=== PATIENT | female | born 1990 | race Caucasian/White ===

== ENCOUNTER 2019-02-23 15:07 | Inpatient (IN) | payer BC ==
[2019-02-23] MEDS ORDERED: Lidocaine 1% 50 ML MDV INJECT PRN (15:27)
[2019-02-23] MEDS ORDERED: Sodium Chloride 0.9% 2.5 ML Syringe FLUSH PRN (15:27)
[2019-02-23] MEDS ORDERED: Methylergonovine 0.2 MG/1 ML Amp IM PRN (15:27)
[2019-02-23] MEDS ORDERED: Water For Irrigation,Sterile 1,000 ML Container IRR PRN (15:27)
[2019-02-23] MEDS ORDERED: Misoprostol 200 MCG Tab PO PRN (15:27)
[2019-02-23] MEDS ORDERED: Sodium Chloride 0.9% 10 ML Syringe FLUSH PRN (15:27)
[2019-02-23] MEDS ORDERED: Sodium Chloride 0.9% 10 ML SDV IV PRN (15:27)
[2019-02-23] MEDS ORDERED: Carboprost Tromethamine 250 MCG/1 ML Amp IM PRN (15:27)
[2019-02-23] MEDS ORDERED: Tranexamic Acid 1,000 MG in Sodium Chloride 0.9% 100 ML IV PRN (15:27)
[2019-02-23] MEDS ORDERED: Nalbuphine 10 MG/1 ML Vial IVPUSH PRN (15:27)
[2019-02-23] MEDS ORDERED: Oxytocin/0.9 % Sodium Chloride 30 UNIT/500 ML BAG IV SCH ×2 (15:30→19:15)
[2019-02-23] MEDS: Lactated Ringers 1,000 ML IV SCH (15:35)
[2019-02-23] MEDS ORDERED: Terbutaline 1 MG/ML SDV SUBCUT PRN (19:13)
[2019-02-23] MEDS: Misoprostol 25 MCG (1/4 of 100 MCG) Tab VAG PRN (19:50)
[2019-02-24] MEDS: Misoprostol 25 MCG (1/4 of 100 MCG) Tab VAG PRN (00:15)
[2019-02-24] MEDS: Butorphanol 1 MG/ML SDV IVPUSH PRN ×3 (03:54→08:42)
[2019-02-24] MEDS: Lactated Ringers 1,000 ML IV SCH (03:56)
--- NOTE | 2019-02-24 08:52 | PCM.PREANE ---
Preanesthetic Assessment - Anesthesia/Transfusion/Family Hx Anesthesia History: Prior Anesthesia Without Reaction Family History of Anesthesia Reaction: No Transfusion History: No Prior Transfusion(s) - Review of Systems General: No Symptoms Pulmonary: No Symptoms Cardiovascular: No Symptoms Gastrointestinal: No Symptoms Neurological: No Symptoms Other: Reports: None - Physical Assessment Height: 5 ft 7 in Weight: 81.647 kg ASA Class: 2 Mental Status: Alert & Oriented x3 Airway Class: Mallampati = 2 Dentition: Reports: Normal Dentition Thyro-Mental Finger Breadths: 3 Mouth Opening Finger Breadths: 3 ROM/Head Extension: Full Lungs: Clear to Auscultation, Normal Respiratory Effort Cardiovascular: Regular Rate, Regular Rhythm - Lab Values: Laboratory Last Values WBC 8.66 K/uL (4.0-11.0) 02/23/19 15:40 RBC 3.78 M/uL (4.30-5.90) L 02/23/19 15:40 Hgb 11.7 g/dL (12.0-16.0) L 02/23/19 15:40 Hct 35.3 % (36.0-46.0) L 02/23/19 15:40 MCV 93.4 fL (80.0-98.0) 02/23/19 15:40 MCH 31.0 pg (27.0-32.0) 02/23/19 15:40 MCHC 33.1 g/dL (31.0-37.0) 02/23/19 15:40 RDW Std Deviation 51.1 fl (28.0-62.0) 02/23/19 15:40 RDW Coeff of Sandrine 15 % (11.0-15.0) 02/23/19 15:40 Plt Count 197 K/uL (150-400) 02/23/19 15:40 MPV 9.70 fL (7.40-12.00) 02/23/19 15:40 Nucleated RBC % 0.0 /100WBC 02/23/19 15:40 Nucleated RBCs # 0 K/uL 02/23/19 15:40 Blood Type O POSITIVE 02/23/19 15:40 Antibody Screen NEGATIVE 02/23/19 15:40 - Allergies Allergies/Adverse Reactions: Allergies Allergy/AdvReac Type Severity Reaction Status Date / Time No Known Allergies Allergy Verified 02/23/19 15:16 - Acknowledgements Anesthesia Type Planned: Epidural Pt an Appropriate Candidate for the Planned Anesthesia: Yes Alternatives and Risks of Anesthesia Discussed w Pt/Guardian: Yes Pt/Guardian Understands and Agrees with Anesthesia Plan: Yes PreAnesthesia Questionnaire HEENT History: Reports: None Cardiovascular History: Reports: Heart Murmur, High Cholesterol, Other (See Below) Other Cardiovascular History: heart murmer as child: resolved. 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): Musculoskeletal History: Reports: None Neurological History: Reports: None Psychiatric History: Reports: ADD, Other (See Below) Other Psychiatric History: ADD in middle school Endocrine/Metabolic History: Reports: Vitamin D Deficiency Hematologic History: Reports: None Immunologic History: Reports: None Oncologic (Cancer) History: Reports: None Dermatologic History: Reports: None - Infectious Disease History Infectious Disease History: Reports: None - Past Surgical History GI Surgical History: Reports: Appendectomy - HOME MEDS Home Medications: Home Meds Docosahexanoic Acid [ Dha] 1 tab PO DAILY 07/31/18 [History] - CURRENT (IN HOUSE) MEDS Current Meds: Current Medications Butorphanol Tartrate (Stadol) 1 mg IVPUSH Q1H PRN PRN Reason: Pain Last Admin: 02/24/19 08:42 Dose: 1 mg Carboprost Tromethamine (Hemabate Ds) 250 mcg IM ASDIRECTED PRN PRN Reason: Post Hemorrhage Lactated Ringer's (Ringers, Lactated) 1,000 mls @ 150 mls/hr IV ASDIRECTED MURIEL Last Admin: 02/24/19 03:56 Dose: 150 mls/hr Oxytocin/Sodium Chloride (Oxytocin 30 Unit/500 Ml-Ns) 30 unit in 500 mls @ 999 mls/hr IV TITRATE MURIEL Tranexamic Acid 1,000 mg/ (Sodium Chloride) 110 mls @ 660 mls/hr IV ONETIME PRN PRN Reason: Bleeding Oxytocin/Sodium Chloride (Oxytocin 30 Unit/500 Ml-Ns) 30 unit in 500 mls @ 2 mls/hr IV TITRATE MURIEL; Protocol Lidocaine HCl (Xylocaine 1%) 50 ml INJECT ONETIME PRN PRN Reason: Laceration repair Methylergonovine Maleate (Methergine) 0.2 mg IM ASDIRECTED PRN PRN Reason: Post Hemorrhage Misoprostol (Cytotec) 200 mcg PO ONETIME PRN PRN Reason: Post Hemorrhage Misoprostol (Cytotec) 25 mcg VAG Q4H PRN PRN Reason: Cervical Ripening Last Admin: 02/24/19 00:15 Dose: 25 mcg Nalbuphine HCl (Nubain) 10 mg IVPUSH Q1H PRN PRN Reason: Pain (severe 7-10) Sodium Chloride (Saline Flush) 10 ml FLUSH ASDIRECTED PRN PRN Reason: Keep Vein Open Sodium Chloride (Saline Flush) 2.5 ml FLUSH ASDIRECTED PRN PRN Reason: Keep Vein Open Sodium Chloride (Normal Saline) 10 ml IV ASDIRECTED PRN PRN Reason: IV Use Sterile Water (Sterile Water For Irrigation) 1,000 ml IRR ASDIRECTED PRN PRN Reason: delivery Terbutaline Sulfate (Brethine) 0.25 mg SUBCUT ASDIRECTED PRN PRN Reason: Tacysystole
--- NOTE | 2019-02-24 21:17 | PCM.DEL ---
<Esperanza Bird - Last Filed: 02/24/19 21:12> L & D Note - General Info Date of Service: 02/24/19 Mother's Due Date: 02/23/19 - Delivery Note Labor: Induced by Oxytocin (category 2 FHR) Cervical Ripening Method: Balloon Device, Oxytocin Other Cervical Ripening Method: Cytotec Delivery Outcome: Livebirth Infant Delivery Method: Spontaneous Vaginal Delivery-Single Infant Delivery Mode: Spontaneous Presentation: Unable to Assess Nuchal Cord: None Anesthesia Type: Epidural Amniotic Fluid Description: Meconium Stained Laceration: 2nd Degree, Perineal Suture type: Other (monochril) Suture size: 2-0 Placenta: Intact Cord: 3 Vessels Estimated Blood Loss: 350 Resuscitation Needed: No [place]: Bulb Syringe, Stimulated, Warmed, Anchor Point Used, Warmer Used Score 1 min: 8 Score 5 min: 9 Second Stage Interventions: Reports: Pushing Effectively, Pushing, Stirrups/Leg Supports Induction Criteria - Induction Gestational Age >/= 39 wks: Yes Estimated Pelvis: Reports: Adequate Reassuring Monitoring Strip: Yes Absence of Tachy Systole: Yes - Augmentation Estimated Pelvis: Reports: Adequate Weight Estimated:: Reports: AGA Reassuring Monitoring Strip: Yes Absence of Tachy Systole: Yes Vacuum Extractor Progress Note - Alternative Labor Strategies Considered Alternative Labor Strategies Considered:: Reports: No - General Info Date of Service: 02/24/19 Functional Status: Reports: Pain Controlled - Review of Systems General: Reports: No Symptoms HEENT: Reports: No Symptoms Pulmonary: Reports: No Symptoms Cardiovascular: Reports: No Symptoms Gastrointestinal: Reports: No Symptoms Genitourinary: Reports: No Symptoms Musculoskeletal: Reports: No Symptoms Skin: Reports: No Symptoms Neurological: Reports: No Symptoms Psychiatric: Reports: No Symptoms - Patient Data Weight - Most Recent: 81.647 kg Med Orders - Current: Current Medications Butorphanol Tartrate (Stadol) 1 mg IVPUSH Q1H PRN PRN Reason: Pain Last Admin: 02/24/19 08:42 Dose: 1 mg Carboprost Tromethamine (Hemabate Ds) 250 mcg IM ASDIRECTED PRN PRN Reason: Post Hemorrhage Lactated Ringer's (Ringers, Lactated) 1,000 mls @ 150 mls/hr IV ASDIRECTED MURIEL Last Admin: 02/24/19 03:56 Dose: 150 mls/hr Oxytocin/Sodium Chloride (Oxytocin 30 Unit/500 Ml-Ns) 30 unit in 500 mls @ 999 mls/hr IV TITRATE MURIEL Tranexamic Acid 1,000 mg/ (Sodium Chloride) 110 mls @ 660 mls/hr IV ONETIME PRN PRN Reason: Bleeding Oxytocin/Sodium Chloride (Oxytocin 30 Unit/500 Ml-Ns) 30 unit in 500 mls @ 2 mls/hr IV TITRATE MURIEL; Protocol Last Titration: 02/24/19 20:43 Dose: 999 munits/min, 999 mls/hr Lidocaine HCl (Xylocaine 1%) 50 ml INJECT ONETIME PRN PRN Reason: Laceration repair Last Admin: 02/24/19 21:00 Dose: 50 ml Methylergonovine Maleate (Methergine) 0.2 mg IM ASDIRECTED PRN PRN Reason: Post Hemorrhage Misoprostol (Cytotec) 200 mcg PO ONETIME PRN PRN Reason: Post Hemorrhage Misoprostol (Cytotec) 25 mcg VAG Q4H PRN PRN Reason: Cervical Ripening Last Admin: 02/24/19 00:15 Dose: 25 mcg Nalbuphine HCl (Nubain) 10 mg IVPUSH Q1H PRN PRN Reason: Pain (severe 7-10) Sodium Chloride (Saline Flush) 10 ml FLUSH ASDIRECTED PRN PRN Reason: Keep Vein Open Sodium Chloride (Saline Flush) 2.5 ml FLUSH ASDIRECTED PRN PRN Reason: Keep Vein Open Sodium Chloride (Normal Saline) 10 ml IV ASDIRECTED PRN PRN Reason: IV Use Sterile Water (Sterile Water For Irrigation) 1,000 ml IRR ASDIRECTED PRN PRN Reason: delivery Last Admin: 02/24/19 21:00 Dose: 1,000 ml Terbutaline Sulfate (Brethine) 0.25 mg SUBCUT ASDIRECTED PRN PRN Reason: Tacysystole Discontinued Medications Fentanyl/Bupivacaine HCl (Ufwsmpev-Jdfkh-Zq 2 Mcg/Ml-0.125%) Confirm Administered Dose 100 mls @ as directed .ROUTE .STK-MED ONE Stop: 02/24/19 08:55 Fentanyl/Bupivacaine HCl (Dgitlgzg-Ptksj-Su 2 Mcg/Ml-0.125%) Confirm Administered Dose 100 mls @ as directed .ROUTE .STK-MED ONE Stop: 02/24/19 15:24 - Exam General: Alert, Oriented Neck: Supple GI/Abdominal Exam: Soft, Non-Tender, No Organomegaly, No Distention, Pelvis Stable (Female) Exam: Normal External Exam, Normal Bimanual Exam Back Exam: Normal Inspection, Full Range of Motion Extremities: Normal Inspection, Normal Range of Motion, Non-Tender, No Pedal Edema, Normal Capillary Refill Skin: Warm, Dry, Intact Wound/Incisions: Healing Well Neurological: No New Focal Deficit Psy/Mental Status: Alert, Normal Affect, Normal Mood - Problem List & Annotations (1) Vaginal delivery SNOMED Code(s): 956611457 Code(s): O80 - ENCOUNTER FOR FULL-TERM UNCOMPLICATED DELIVERY Status: Acute Current Visit: Yes - Problem List Review Problem List Initiated/Reviewed/Updated: Yes - Assessment Assessment:: Vaginal delivery - Plan Plan:: Regular diet Ambulate PRN Pain control PRN Routine care <Quentin Tilley - Last Filed: 02/24/19 21:27> L & D Note - Delivery Note Cervical Ripening Method: Misoprostil Presentation: Right Occiput Anterior (PINO) Episiotomy Type: None Laceration: Perineal Delivery Comments (Free Text/Narrative):: Live female delivered at 2042 , 8/9 weight pending - Patient Data Med Orders - Current: Current Medications Butorphanol Tartrate (Stadol) 1 mg IVPUSH Q1H PRN PRN Reason: Pain Last Admin: 02/24/19 08:42 Dose: 1 mg Carboprost Tromethamine (Hemabate Ds) 250 mcg IM ASDIRECTED PRN PRN Reason: Post Hemorrhage Lactated Ringer's (Ringers, Lactated) 1,000 mls @ 150 mls/hr IV ASDIRECTED MRUIEL Last Admin: 02/24/19 03:56 Dose: 150 mls/hr Oxytocin/Sodium Chloride (Oxytocin 30 Unit/500 Ml-Ns) 30 unit in 500 mls @ 999 mls/hr IV TITRATE MURIEL Tranexamic Acid 1,000 mg/ (Sodium Chloride) 110 mls @ 660 mls/hr IV ONETIME PRN PRN Reason: Bleeding Oxytocin/Sodium Chloride (Oxytocin 30 Unit/500 Ml-Ns) 30 unit in 500 mls @ 2 mls/hr IV TITRATE MURIEL; Protocol Last Titration: 02/24/19 20:43 Dose: 999 munits/min, 999 mls/hr Lidocaine HCl (Xylocaine 1%) 50 ml INJECT ONETIME PRN PRN Reason: Laceration repair Last Admin: 02/24/19 21:00 Dose: 50 ml Methylergonovine Maleate (Methergine) 0.2 mg IM ASDIRECTED PRN PRN Reason: Post Hemorrhage Misoprostol (Cytotec) 200 mcg PO ONETIME PRN PRN Reason: Post Hemorrhage Misoprostol (Cytotec) 25 mcg VAG Q4H PRN PRN Reason: Cervical Ripening Last Admin: 02/24/19 00:15 Dose: 25 mcg Nalbuphine HCl (Nubain) 10 mg IVPUSH Q1H PRN PRN Reason: Pain (severe 7-10) Sodium Chloride (Saline Flush) 10 ml FLUSH ASDIRECTED PRN PRN Reason: Keep Vein Open Sodium Chloride (Saline Flush) 2.5 ml FLUSH ASDIRECTED PRN PRN Reason: Keep Vein Open Sodium Chloride (Normal Saline) 10 ml IV ASDIRECTED PRN PRN Reason: IV Use Sterile Water (Sterile Water For Irrigation) 1,000 ml IRR ASDIRECTED PRN PRN Reason: delivery Last Admin: 02/24/19 21:00 Dose: 1,000 ml Terbutaline Sulfate (Brethine) 0.25 mg SUBCUT ASDIRECTED PRN PRN Reason: Tacysystole Discontinued Medications Fentanyl/Bupivacaine HCl (Kalmvfyt-Xoqxg-Di 2 Mcg/Ml-0.125%) Confirm Administered Dose 100 mls @ as directed .ROUTE .STK-MED ONE Stop: 02/24/19 08:55 Fentanyl/Bupivacaine HCl (Vodbexln-Hagym-Wu 2 Mcg/Ml-0.125%) Confirm Administered Dose 100 mls @ as directed .ROUTE .STK-MED ONE Stop: 02/24/19 15:24 - My Orders Last 24 Hours: My Active Orders 02/24/19 Breakfast Regular Diet [DIET]
[2019-02-24] MEDS ORDERED: Witch Hazel Medicated Pads 40/Jar TOP PRN (21:29)
[2019-02-24] MEDS ORDERED: Lanolin 100% Cream 7 GM Tube TOP PRN (21:29)
[2019-02-24] MEDS ORDERED: Benzocaine/Menthol 20%-0.5% Spray 78 GM Cannister TOP PRN (21:29)
[2019-02-24] MEDS ORDERED: Acetaminophen 500 MG Tab PO PRN (21:29)
[2019-02-24] MEDS ORDERED: Bisacodyl 10 MG Supp RECTAL PRN (21:29)
[2019-02-24] MEDS ORDERED: Docusate Sodium 100 MG Cap PO PRN (21:29)
[2019-02-24] MEDS ORDERED: oxyCODONE 5 MG Tab PO PRN (21:29)
[2019-02-24] MEDS ORDERED: Ibuprofen 400 MG Tab PO PRN (21:29)
[2019-02-25] MEDS: Acetaminophen 500 MG Tab PO PRN ×3 (00:11→22:21)
--- NOTE | 2019-02-25 07:17 | PCM.PNPP ---
- General Info Date of Service: 02/25/19 Subjective Update: 28 yo P1 s/p denies any complains , Normal lochia , , ambulating and tolerating regular diet Functional Status: Reports: Pain Controlled, Tolerating Diet, Ambulating, Urinating - Review of Systems General: Reports: No Symptoms HEENT: Reports: No Symptoms Pulmonary: Reports: No Symptoms Cardiovascular: Reports: No Symptoms Gastrointestinal: Reports: No Symptoms Genitourinary: Reports: No Symptoms Musculoskeletal: Reports: No Symptoms Skin: Reports: No Symptoms Neurological: Reports: No Symptoms Psychiatric: Reports: No Symptoms - General Info Date of Service: 02/25/19 - Patient Data Vital Signs - Most Recent: Last Vital Signs Temp 36.7 C 02/25/19 05:13 Pulse 62 02/25/19 05:13 Resp 17 02/25/19 05:13 BP 99/65 02/25/19 05:13 Pulse Ox 98 02/25/19 05:13 Weight - Most Recent: 81.647 kg Lab Results - Last 24 Hours: Laboratory Results - last 24 hr 02/24/19 02/25/19 Range/Units 20:42 05:43 Hgb 10.3 L (12.0-16.0) g/dL Hct 31.5 L (36.0-46.0) % Cord ABG pH 7.257 (7.18-7.38) Cord ABG Base Excess -9 (-10--2) Cord VBG pH 7.354 (7.25-7.45) Cord VBG Base Excess -7 (-10--2) Med Orders - Current: Current Medications Acetaminophen (Tylenol Extra Strength) 500 mg PO Q4H PRN PRN Reason: Pain Acetaminophen (Tylenol Extra Strength) 1,000 mg PO Q4H PRN PRN Reason: Pain Last Admin: 02/25/19 00:11 Dose: 1,000 mg Benzocaine/Menthol (Dermoplast Pain Relief 20%-0.5% [place]) 78 gm TOP ASDIRECTED PRN PRN Reason: Perineal Comfort Measure Last Admin: 02/25/19 00:12 Dose: 1 can Bisacodyl (Dulcolax) 10 mg RECTAL ONETIME PRN PRN Reason: Constipation Butorphanol Tartrate (Stadol) 1 mg IVPUSH Q1H PRN PRN Reason: Pain Last Admin: 02/24/19 08:42 Dose: 1 mg Carboprost Tromethamine (Hemabate Ds) 250 mcg IM ASDIRECTED PRN PRN Reason: Post Hemorrhage Docusate Sodium (Colace) 100 mg PO BID PRN PRN Reason: Constipation Emollient Ointment (Lansinoh Hpa) 0 gm TOP ASDIRECTED PRN PRN Reason: Sore Nipples Last Admin: 02/25/19 00:13 Dose: 1 tube Lactated Ringer's (Ringers, Lactated) 1,000 mls @ 150 mls/hr IV ASDIRECTED MURIEL Last Admin: 02/24/19 03:56 Dose: 150 mls/hr Oxytocin/Sodium Chloride (Oxytocin 30 Unit/500 Ml-Ns) 30 unit in 500 mls @ 999 mls/hr IV TITRATE [facility] Tranexamic Acid 1,000 mg/ (Sodium Chloride) 110 mls @ 660 mls/hr IV ONETIME PRN PRN Reason: Bleeding Oxytocin/Sodium Chloride (Oxytocin 30 Unit/500 Ml-Ns) 30 unit in 500 mls @ 2 mls/hr IV TITRATE [facility]; Protocol Last Titration: 02/24/19 20:43 Dose: 999 munits/min, 999 mls/hr Ibuprofen (Motrin) 400 mg PO Q4H PRN PRN Reason: Pain Ibuprofen (Motrin) 800 mg PO Q6H PRN PRN Reason: Pain Lidocaine HCl (Xylocaine 1%) 50 ml INJECT ONETIME PRN PRN Reason: Laceration repair Last Admin: 02/24/19 21:00 Dose: 50 ml Methylergonovine Maleate (Methergine) 0.2 mg IM ASDIRECTED PRN PRN Reason: Post Hemorrhage Misoprostol (Cytotec) 200 mcg PO ONETIME PRN PRN Reason: Post Hemorrhage Misoprostol (Cytotec) 25 mcg VAG Q4H PRN PRN Reason: Cervical Ripening Last Admin: 02/24/19 00:15 Dose: 25 mcg Nalbuphine HCl (Nubain) 10 mg IVPUSH Q1H PRN PRN Reason: Pain (severe 7-10) Oxycodone HCl (Oxycodone) 5 mg PO Q2H PRN PRN Reason: Pain Sodium Chloride (Saline Flush) 10 ml FLUSH ASDIRECTED PRN PRN Reason: Keep Vein Open Sodium Chloride (Saline Flush) 2.5 ml FLUSH ASDIRECTED PRN PRN Reason: Keep Vein Open Sodium Chloride (Normal Saline) 10 ml IV ASDIRECTED PRN PRN Reason: IV Use Sterile Water (Sterile Water For Irrigation) 1,000 ml IRR ASDIRECTED PRN PRN Reason: delivery Last Admin: 02/24/19 21:00 Dose: 1,000 ml Terbutaline Sulfate (Brethine) 0.25 mg SUBCUT ASDIRECTED PRN PRN Reason: Tacysystole Witch Ana (Tucks) 1 pad TOP ASDIRECTED PRN PRN Reason: comfort care Last Admin: 02/25/19 00:11 Dose: 1 tub Discontinued Medications Fentanyl/Bupivacaine HCl (Ukwbqfwf-Obzie-Ik 2 Mcg/Ml-0.125%) Confirm Administered Dose 100 mls @ as directed .ROUTE .STK-MED ONE Stop: 02/24/19 08:55 Fentanyl/Bupivacaine HCl (Ohltkzwl-Zhzjo-Tz 2 Mcg/Ml-0.125%) Confirm Administered Dose 100 mls @ as directed .ROUTE .STK-MED ONE Stop: 02/24/19 15:24 - Recovery Exam Fundal Tone: Firm Fundal Level: At Umbilicus Fundal Placement: Midline Lochia Amount: Small Episiotomy/Laceration: Approximated - Exam General: Alert HEENT: Pupils Equal Neck: Supple Lungs: Clear to Auscultation Cardiovascular: Regular Rate, Regular Rhythm GI/Abdominal Exam: Normal Bowel Sounds Extremities: Normal Inspection Neurological: No New Focal Deficit - Problem List & Annotations (1) Vaginal delivery SNOMED Code(s): 701592285 Code(s): O80 - ENCOUNTER FOR FULL-TERM UNCOMPLICATED DELIVERY Status: Acute Current Visit: Yes - Problem List Review Problem List Initiated/Reviewed/Updated: Yes - My Orders Last 24 Hours: My Active Orders 02/24/19 21:29 Acetaminophen [Tylenol Extra Strength] 1,000 mg PO Q4H PRN Acetaminophen [Tylenol Extra Strength] 500 mg PO Q4H PRN Benzocaine/Menthol [Dermoplast Pain Relief 20%-0.5% [place]] 78 gm TOP ASDIRECTED PRN Bisacodyl [Dulcolax] 10 mg RECTAL ONETIME PRN Docusate Sodium [Colace] 100 mg PO BID PRN Ibuprofen [Motrin] 400 mg PO Q4H PRN Ibuprofen [Motrin] 800 mg PO Q6H PRN Lanolin [Lansinoh HPA] See Dose Instructions TOP ASDIRECTED PRN Russell Ana [Tucks] 1 pad TOP ASDIRECTED PRN oxyCODONE 5 mg PO Q2H PRN Resuscitation Status Routine 02/24/19 21:30 Patient Status [ADT] Routine May Shower [RC] ASDIRECTED Up ad Jocelyne [RC] ASDIRECTED Vital Signs [RC] PER UNIT ROUTINE Assess Lochia [WOMSER] Per Unit Routine Assess Uterine Involution [WOMSER] Per Unit Routine Peripheral IV Discontinue [OM.PC] Routine 02/24/19 Breakfast Regular Diet [DIET] - Assessment Assessment:: 28yo P1 s/p PPD1 , stable , normal lochia , - Plan Plan:: Regular diet Ambulate PRN Pain control PRN Routine care Discharge home today
[2019-02-25] MEDS: Ibuprofen 800 MG Tab PO PRN ×2 (08:13→17:08)
--- NOTE | 2019-02-25 11:59 | PCM48HPAN ---
Post Anesthesia Note - EVALUATION WITHIN 48HRS OF ANESTHETIC Vital Signs in Normal Range: Yes Patient Participated in Evaluation: Yes Respiratory Function Stable: Yes Airway Patent: Yes Cardiovascular Function Stable: Yes Hydration Status Stable: Yes Pain Control Satisfactory: Yes Nausea and Vomiting Control Satisfactory: Yes Mental Status Recovered: Yes Resp Rate: 18
--- NOTE | 2019-02-25 12:44 | OR ---
SURGEON: ANGEL WAGNER DATE OF PROCEDURE: 02/24/2019 PREOPERATIVE DIAGNOSES: A 28-year-old G1, P0 at 40 weeks 0 days; admitted for induction of labor secondary to category 2 heart tracing. POSTOPERATIVE DIAGNOSES: A 28-year-old G1, P0 at 40 weeks 0 days; admitted for induction of labor secondary to category 2 heart tracing. PROCEDURE: Normal spontaneous vaginal delivery and repair of second-degree laceration. ESTIMATED BLOOD LOSS: 350. INCIDENTAL FINDINGS: Of a live delivered at 2030. scores are 8 and 9. Weight is 3600 g. BRIEF HISTORY: She is a 28-year-old G1, P0, 40 weeks 0 days who was seen in for postdates surveillance, had noted to have some deceleration on the NST. She had minimal to moderate variability, so she was brought in for induction. Induction of labor was started with Cytotec. She received about 3 doses of Cytotec. She was still at about 2 cm dilated, so a CRB balloon was placed, and Pitocin was also started, and then the patient made rapid change. PROCEDURE She became fully dilated.With the patient being fully dilated, she was encouraged to push. She had about 2 hours of good pushing effort. Then, she delivered the head, subsequently body, and anterior and posterior shoulder. Second-degree laceration was noted. Then, the body of the infant was delivered. Delayed cord clamping was observed. The cord was clamped, and cord blood gases were obtained. Pitocin was running. The second-degree laceration was repaired with 2-0 Monocryl in layers, and all instrument and pad counts were correct x2. The patient tolerated the procedure well and was left in Labor and Delivery room in stable condition. LOTTIE SHANNON /[id number] CAPO
[2019-02-26] MEDS: Ibuprofen 800 MG Tab PO PRN (01:27)
--- NOTE | 2019-02-26 09:11 | PCM.PNPP ---
- General Info Date of Service: 02/26/19 Functional Status: Reports: Pain Controlled - Review of Systems General: Reports: No Symptoms HEENT: Reports: No Symptoms Pulmonary: Reports: No Symptoms. Denies: Shortness of Breath, Pleuritic Chest Pain Cardiovascular: Reports: No Symptoms. Denies: Chest Pain, Palpitations Gastrointestinal: Reports: No Symptoms, Abdominal Pain (some mild cramping) Genitourinary: Reports: No Symptoms. Denies: Dysuria, Frequency, Burning, Pain Musculoskeletal: Reports: No Symptoms Skin: Reports: No Symptoms Neurological: Reports: No Symptoms. Denies: Dizziness, Headache, Numbness Psychiatric: Reports: No Symptoms - General Info Date of Service: 02/26/19 - Patient Data Vital Signs - Most Recent: Last Vital Signs Temp 98.3 F 02/26/19 08:01 Pulse 83 02/26/19 08:01 Resp 18 02/26/19 08:01 BP 115/74 02/26/19 08:01 Pulse Ox 97 02/26/19 08:01 Weight - Most Recent: 180 lb Med Orders - Current: Current Medications Acetaminophen (Tylenol Extra Strength) 500 mg PO Q4H PRN PRN Reason: Pain Acetaminophen (Tylenol Extra Strength) 1,000 mg PO Q4H PRN PRN Reason: Pain Last Admin: 02/25/19 22:21 Dose: 1,000 mg Benzocaine/Menthol (Dermoplast Pain Relief 20%-0.5% [place]) 78 gm TOP ASDIRECTED PRN PRN Reason: Perineal Comfort Measure Last Admin: 02/25/19 00:12 Dose: 1 can Bisacodyl (Dulcolax) 10 mg RECTAL ONETIME PRN PRN Reason: Constipation Butorphanol Tartrate (Stadol) 1 mg IVPUSH Q1H PRN PRN Reason: Pain Last Admin: 02/24/19 08:42 Dose: 1 mg Carboprost Tromethamine (Hemabate Ds) 250 mcg IM ASDIRECTED PRN PRN Reason: Post Hemorrhage Docusate Sodium (Colace) 100 mg PO BID PRN PRN Reason: Constipation Last Admin: 02/25/19 22:21 Dose: 100 mg Emollient Ointment (Lansinoh Hpa) 0 gm TOP ASDIRECTED PRN PRN Reason: Sore Nipples Last Admin: 02/25/19 00:13 Dose: 1 tube Lactated Ringer's (Ringers, Lactated) 1,000 mls @ 150 mls/hr IV ASDIRECTED MURIEL Last Admin: 02/24/19 03:56 Dose: 150 mls/hr Oxytocin/Sodium Chloride (Oxytocin 30 Unit/500 Ml-Ns) 30 unit in 500 mls @ 999 mls/hr IV TITRATE MURIEL Tranexamic Acid 1,000 mg/ (Sodium Chloride) 110 mls @ 660 mls/hr IV ONETIME PRN PRN Reason: Bleeding Oxytocin/Sodium Chloride (Oxytocin 30 Unit/500 Ml-Ns) 30 unit in 500 mls @ 2 mls/hr IV TITRATE MURIEL; Protocol Last Titration: 02/24/19 20:43 Dose: 999 munits/min, 999 mls/hr Ibuprofen (Motrin) 400 mg PO Q4H PRN PRN Reason: Pain Ibuprofen (Motrin) 800 mg PO Q6H PRN PRN Reason: Pain Last Admin: 02/26/19 01:27 Dose: 800 mg Lidocaine HCl (Xylocaine 1%) 50 ml INJECT ONETIME PRN PRN Reason: Laceration repair Last Admin: 02/24/19 21:00 Dose: 50 ml Methylergonovine Maleate (Methergine) 0.2 mg IM ASDIRECTED PRN PRN Reason: Post Hemorrhage Misoprostol (Cytotec) 200 mcg PO ONETIME PRN PRN Reason: Post Hemorrhage Misoprostol (Cytotec) 25 mcg VAG Q4H PRN PRN Reason: Cervical Ripening Last Admin: 02/24/19 00:15 Dose: 25 mcg Nalbuphine HCl (Nubain) 10 mg IVPUSH Q1H PRN PRN Reason: Pain (severe 7-10) Oxycodone HCl (Oxycodone) 5 mg PO Q2H PRN PRN Reason: Pain Sodium Chloride (Saline Flush) 10 ml FLUSH ASDIRECTED PRN PRN Reason: Keep Vein Open Sodium Chloride (Saline Flush) 2.5 ml FLUSH ASDIRECTED PRN PRN Reason: Keep Vein Open Sodium Chloride (Normal Saline) 10 ml IV ASDIRECTED PRN PRN Reason: IV Use Sterile Water (Sterile Water For Irrigation) 1,000 ml IRR ASDIRECTED PRN PRN Reason: delivery Last Admin: 02/24/19 21:00 Dose: 1,000 ml Terbutaline Sulfate (Brethine) 0.25 mg SUBCUT ASDIRECTED PRN PRN Reason: Tacysystole Russell Perez (Tucks) 1 pad TOP ASDIRECTED PRN PRN Reason: comfort care Last Admin: 02/25/19 00:11 Dose: 1 tub Discontinued Medications Fentanyl/Bupivacaine HCl (Kjcrtgdb-[id number] 2 Mcg/Ml-0.125%) Confirm Administered Dose 100 mls @ as directed .ROUTE .STK-MED ONE Stop: 02/24/19 08:55 Last Admin: 02/25/19 22:57 Dose: Not Given Fentanyl/Bupivacaine HCl ([id number]-Iqnpb-Kr 2 Mcg/Ml-0.125%) Confirm Administered Dose 100 mls @ as directed .ROUTE .STK-MED ONE Stop: 02/24/19 15:24 Last Admin: 02/25/19 22:57 Dose: Not Given - Infant Interaction Disposition, : in Room with Family Interaction: Holding Infant Infant Feeding: Breastfed Infant; Nursed Well - Recovery Exam Fundal Tone: Firm Fundal Level: 1 Fingerbreadths Below Umbilicus Fundal Placement: Midline Lochia Amount: Scant Lochia Color: Rubra/Red Perineum Description: Other (see below) (exam not performed due to medical 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
== END 2019-02-26 12:01 | disposition home or self-care (01) | DRG 560 ==
LOC: MW.OB 15:07 → UNDOADMOB 15:07 → INTOOBSV 20:42 → OBSVTOIN 20:42 → MW.OB 02-24 20:42 → UNDODISIN 02-26 12:01 → PREOBSVTOIN 03-04 14:45
PROVIDERS: ADMIT Obstetrics & Gynecology; ATTEND Obstetrics & Gynecology
PROC: 3E033VJ Introduction of Other Hormone into Peripheral Vein, Percutaneous Approach (ICD-10-PCS; principal; 2019-02-24)
PROC: 3E0P7VZ Introduction of Hormone into Female Reproductive, Via Natural or Artificial Opening (ICD-10-PCS; 2019-02-24)
PROC: 10E0XZZ Delivery of Products of Conception, External Approach (ICD-10-PCS; 2019-02-24)
PROC: 0KQM0ZZ Repair Perineum Muscle, Open Approach (ICD-10-PCS; 2019-02-24)
PROC: 0U7C7ZZ Dilation of Cervix, Via Natural or Artificial Opening (ICD-10-PCS; 2019-02-24)
PROC: 4A1HXCZ Monitoring of Products of Conception, Cardiac Rate, External Approach (ICD-10-PCS; 2019-02-24)
PROC: 3E0R3BZ Introduction of Anesthetic Agent into Spinal Canal, Percutaneous Approach (ICD-10-PCS; 2019-02-24)
DX: O48.0 Post-term pregnancy (principal); Z3A.40 40 weeks gestation of pregnancy; Z37.0 Single live birth; O77.0 Labor and delivery complicated by meconium in amniotic fluid; O70.1 Second degree perineal laceration during delivery
CPT/HCPCS: 01967; 36415; 51702; 59025; 59200; 59409; 82803; 85014; 85018; 85027; 86850; 86900; 86901; A9270-GY; J0595; J2001; J2590; J7120